=== PATIENT | male | born 1970 | race American Indian/Alaskan Native ===

== ENCOUNTER 2019-05-13 09:39 | Emergency (ER) | payer OTHER ==
[2019-05-13 10:05] VITALS: BP 132/78
--- NOTE | 2019-05-13 11:08 | Emergency Department Report ---
- General Chief complaint: Skin/Abscess/Foreign Body Stated complaint: Q-TIP IN RIGHT EAR Time Seen by Provider: 05/13/19 11:00 Source: patient Mode of arrival: Ambulatory Limitations: No Limitations - History of Present Illness Initial comments: 48-year-old -[place] male presents to the emergency room stating that he has a Q-tip stuck in his right ear that happened this morning. Patient denies any pain or drainage from the ear. MD complaint: foreign body -: This morning Severity: mild Severity scale (0 -10): 0 - Related Data Allergies Allergy/AdvReac Type Severity Reaction Status Date / Time latex Allergy Rash Verified 05/13/19 10:01 Abscess Boil HPI - HPI Chief Complaint: Skin/Abscess/Foreign Body Stated Complaint: Q-TIP IN RIGHT EAR Time Seen by Provider: 05/13/19 11:00 Allergies/Adverse Reactions: Allergies Allergy/AdvReac Type Severity Reaction Status Date / Time latex Allergy Rash Verified 05/13/19 10:01 ED Review of Systems ROS: Stated complaint: Q-TIP IN RIGHT EAR Other details as noted in HPI Comment: All other systems reviewed and negative ED Past Medical Hx - Past Medical History Previous Medical History?: Yes Hx Asthma: Yes - Surgical History Past Surgical History?: No ED Physical Exam - General Limitations: No Limitations General appearance: alert, in no apparent distress - Head Head exam: Present: atraumatic, normocephalic - Eye Eye exam: Present: normal appearance - Expanded ENT Exam Expanded TM/Canal exam: Foreign Body: Right TM (Q-tip) ED Course Vital Signs 05/13/19 10:03 Temperature 97.5 F L Pulse Rate 71 Respiratory 18 Rate Blood Pressure 132/78 O2 Sat by Pulse 99 Oximetry - Foreign Body Removal Ear Location: ear canal (R) Foreign Body Suspected: organic matter Foreign Body Removed: yes Foreign Body Removal Technique: instrumentation Tympanic Membrane Intact: Yes Patient Tolerated Procedure: well Complications: none ED Medical Decision Making - Medical Decision Making 48-year-old -[place] male presents to the emergency room stating that he has a Q-tip stuck in his right ear that happened this morning. Patient denies any pain or drainage from the ear. Right ear has foreign body was removed by this provider. Tolerated well no antibiotics needed. Critical care attestation.: If time is entered above; I have spent that time in minutes in the direct care of this critically ill patient, excluding procedure time. ED Disposition Clinical Impression: Foreign body of ear, right Disposition: DC-01 TO HOME OR SELFCARE Is pt being admited?: No Does the pt Need Aspirin: No Condition: Stable Instructions: Ear Foreign Body (ED) Additional Instructions: Please do not put Q-tips in your ear.
== END 2019-05-13 11:15 | disposition home or self-care (01) ==
LOC: ED 09:39
DX: T16.1XXA Foreign body in right ear, initial encounter (principal); X58.XXXA Exposure to other specified factors, initial encounter; Y93.89 Activity, other specified; Y92.488 Other paved roadways as the place of occurrence of the external cause; Y99.8 Other external cause status
CPT/HCPCS: 99281

== ENCOUNTER 2019-11-03 10:53 | Emergency (ER) | payer SELFPAY ==
[2019-11-03] MEDS ORDERED: predniSONE 20 MG TAB PO ONE (12:24)
[2019-11-03] MEDS ORDERED: ALBUTEROL 2.5 MG/3 ML NEBU IH ONE (12:24)
[2019-11-03] MEDS ORDERED: IPRATROPIUM 0.02% NEBU 2.5 ML IH ONE (12:24)
--- NOTE | 2019-11-03 12:37 | Emergency Department Report ---
HPI - General Chief Complaint: Adult Asthma Time Seen by Provider: 11/03/19 11:57 - HPI HPI: This is a 48-year-old -[place] male presents to the emergency department with a complaint of a one-week history of some shortness of breath, wheezing and a dry cough. He denies any chest pain, fever, lower extremity swelling, nausea, vomiting or diaphoresis. Patient has a history of asthma and is a tobacco/cigarette smoker. He does not have any inhaler or nebulizer treatments or medications to use. He does have a primary care physician but cannot currently remember the name, and has not seen them regarding his symptoms. No recent travel or sick contacts at home. ED Past Medical Hx - Past Medical History Hx Asthma: Yes - Surgical History Past Surgical History?: No - Social History Smoking Status: Current Every Day Smoker - Medications Home Medications: Home Medications Medication Instructions Recorded Confirmed Last Taken Type Albuterol Mdi (or & Nicu Only) 2 puff IH QID PRN #8.5 gram 11/03/19 Unknown Rx [ProAir HFA Inhaler] predniSONE [Deltasone] 20 mg PO QDAY #5 tab 11/03/19 Unknown Rx ED Review of Systems ROS: Stated complaint: ASTHMA/HEADACHE Other details as noted in HPI Comment: All other systems reviewed and negative Constitutional: denies: chills, fever Eyes: denies: eye pain, vision change ENT: denies: ear pain, throat pain Respiratory: cough, shortness of breath, wheezing Cardiovascular: denies: chest pain, palpitations, edema Gastrointestinal: denies: abdominal pain, vomiting Genitourinary: denies: dysuria, discharge Musculoskeletal: denies: back pain, arthralgia Skin: denies: rash, lesions Neurological: denies: weakness, numbness Physical Exam - Physical Exam Vital Signs: Vital Signs 11/03/19 11/03/19 10:57 12:19 Temperature 98.0 F Pulse Rate 83 Respiratory 18 20 Rate Blood Pressure 156/92 O2 Sat by Pulse 98 Oximetry Physical Exam: GENERAL: The patient is well-developed well-nourished. HENT: Normocephalic. Atraumatic. Patient has moist mucous membranes. EYES: Extraocular motions are intact. No nystagmus. NECK: Supple. Trachea is midline. CHEST/LUNGS: Mild expiratory wheezing. No cough heard during examination. No tachypnea or accessory muscle use. There is no respiratory distress noted. HEART/CARDIOVASCULAR: Regular. There is no tachycardia. There is no murmur. ABDOMEN: Abdomen is soft, nontender. Patient has normal bowel sounds. There is no abdominal distention. SKIN: Skin is warm and dry. NEURO: The patient is awake, alert, and oriented. The patient is cooperative. The patient has no focal neurologic deficits. Normal speech. Cranial nerves II through XII grossly intact. MUSCULOSKELETAL: There is no tenderness or deformity. ED Course Vital Signs 11/03/19 11/03/19 10:57 12:19 Temperature 98.0 F Pulse Rate 83 Respiratory 18 20 Rate Blood Pressure 156/92 O2 Sat by Pulse 98 Oximetry ED Medical Decision Making - Radiology Data Radiology results: image reviewed interpreted by me: Chest x-ray does not show any acute process. There are no pleural effusions, o bvious pneumonia and there is no pneumothorax. No significant cardiomegaly. - Medical Decision Making Regarding the patient's shortness of breath, wheezing and cough: The patient has a history of asthma and continues to smoke cigarettes. On examination he has some mild expiratory wheezing but does not appear in any respiratory or acute distress. Chest x-ray did not show any pneumonia, pleural effusions, pneumothorax, focal consolidation, or any other acute processes. The patient was given a dose of oral steroids and a breathing treatment. Upon reevaluation the wheezing has resolved and the patient says he is feeling "much better." Regarding his complaints of intermittent headaches: The patient does not have any focal, motor or sensory deficits and his cranial nerves are intact. After just the steroids and the breathing treatment, the patient says that his headache has almost completely resolved. For all these reasons I did not feel that advanced CT imaging of of the head was necessary at this time. He has good outpatient follow-up with primary care. He will return to the ER with any worsening of his symptoms or with any acute distress. Critical Care Time: No Critical care attestation.: If time is entered above; I have spent that time in minutes in the direct care of this critically ill patient, excluding procedure time. ED Disposition Clinical Impression: Tobacco use Asthma Qualifiers: Asthma severity: unspecified severity Asthma persistence: unspecified Asthma complication type: with acute exacerbation Qualified Code(s): J45.901 - Unspecified asthma with (acute) exacerbation Hypertension Qualifiers: Hypertension type: essential hypertension Qualified Code(s): I10 - Essential (primary) hypertension Disposition: TO HOME OR SELFCARE Is pt being admited?: No Condition: Stable Instructions: Asthma (ED), How to Stop Smoking (ED), Hypertension (ED) Additional Instructions: Please follow-up with your primary care physician in the next few days. Return to the emergency department with any worsening of your symptoms or with any acute distress. Please try and quit smoking. Please try and stay away from foods that are high in salt and caffeinated products. Keep a blood pressure log. Prescriptions: predniSONE [Deltasone] 20 mg PO QDAY #5 tab Albuterol Mdi (or & Nicu Only) [ProAir HFA Inhaler] 2 puff IH QID PRN #8.5 gram PRN Reason: Shortness Of Breath Referrals: PRIMARY CARE, [Primary Care Provider] - 2-3 Days Time of Disposition: 13:56
--- NOTE | 2019-11-03 13:22 | XRay Report ---
CHEST 1 VIEW INDICATION: SOB. COMPARISON: None. FINDINGS: Support devices: None. Heart: Within normal limits. Lungs/Pleura: No acute air space or interstitial disease. Additional findings: None. IMPRESSION: No acute abnormality. Signer Name: Matt Dowell MD Signed: 11/03/2019 1:18 PM Workstation Name: [id number]
[2019-11-03 14:32] VITALS: BP 139/88
== END 2019-11-03 14:10 | disposition home or self-care (01) ==
LOC: ED 10:53
DX: J45.909 Unspecified asthma, uncomplicated (principal); I10 Essential (primary) hypertension; Z79.899 Other long term (current) drug therapy; Z72.0 Tobacco use
CPT/HCPCS: 71045; 94640; 99283; J7512